=== PATIENT | female | born 1935 | race African-American/Black ===

== ENCOUNTER 2017-07-22 18:46 | Observation (INO) | payer MEDICARE, MEDICAID ==
[~2017-07-22] VITALS: Ht 162.6 cm; Wt 60.0 kg
[~2017-07-22 18:46] MED LIST: ARIC5TAB PO; CIPR250T2 PO; CITA20 PO; DUONI NEB; ENAL20TA PO; FERR325T86 PO; KCL10C PO; NORV5TAB PO; NOVORP2 SQ; PRAV20 PO; ROBISYP PO; WAL-10TA2 PO; ZEGE20CA PO
[2017-07-22 19:15] VITALS: BP 138/78; PULSE 89; RESP 16; TEMP 97.9; O2SAT 98
[2017-07-22] MEDS ORDERED: SODIUM CHLORIDE 0.9% FLUSH 10 ML FLUSH IVF PRN (20:00)
--- NOTE | 2017-07-22 20:03 | PD ---
HPI Chief Complaint: General Weakness Time Seen by Provider: 19:00 Travel History International Travel<30 days: No Contact w/Intl Traveler<30days: No Traveled to known affect area: No History of Present Illness HPI 82-year-old female presents to emergency department via [facility] from [facility] for weakness that started just prior to arrival. Evac stated that she had a fall however, patient denies this. According to Ev[facility] blood sugar was 49, D50 was administered, and blood glucose increased to 139. Pt denies feeling weak at this time. Denies fever, chills, LOC, headache, chest pain, shortness of breath , abdominal pain, back pain, dysuria. States that she has been eating well, really has no complaints. Patient has a history of diabetes for which she takes a 'pill'. Denies any other chronic conditions including COPD, asthma or heart problems. PFSH Past Medical History Anemia: Yes Arthritis: Yes Asthma: No Blood Disorders: No Anxiety: Yes Depression: No Heart Rhythm Problems: No Cancer: No Cardiovascular Problems: Yes High Cholesterol: Yes Chemotherapy: No Chest Pain: No Congestive Heart Failure: No COPD: No Cerebrovascular Accident: Yes Diabetes: Yes Patient Takes Glucophage: Yes Diminished Hearing: No Endocrine: Yes Gastrointestinal Disorders: Yes GERD: Yes Genitourinary: Yes (KIDNEY STONES) Headaches: Yes Hypertension: Yes Immune Disorder: No Kidney Stones: Yes Musculoskeletal: Yes Neurologic: No Psychiatric: Yes Reproductive: No Respiratory: No Migraines: No Radiation Therapy: No Sleep Apnea: No Thyroid Disease: No Ulcer: Yes Tetanus Vaccination: Unknown ?: Not : 4 Para: 4 Past Surgical History Abdominal Surgery: Yes (abominal sx to stop bleeding) Endocrine Surgery: Yes ("thyroid") Gynecologic Surgery: Yes Hysterectomy: Yes Other Surgery: Yes (TUMOR (ULCER) IN ABD SURGERY) Social History Alcohol Use: No Tobacco Use: No Substance Use: No Allergies-Medications (Allergen,Severity, Reaction): Coded Allergies: aspirin (Unverified Allergy, Severe, Heartburn, 07/22/17) SEVERE ABDOMINAL PAIN AND UPSET Reported Meds & Prescriptions Reported Meds & Active Scripts Active Reported Amlodipine (Amlodipine Besylate) 5 Mg Tab 5 Mg PO DAILY Citalopram (Citalopram Hydrobromide) 20 Mg Tab 20 Mg PO DAILY Donepezil 10 Mg Tab 10 Mg PO HS Enalapril (Enalapril Maleate) 20 Mg Tab 20 Mg PO DAILY Ferrous Sulfate 325 Mg (65 Mg Iron) Tablet 325 Mg PO BIDPC Allergy Relief (Loratadine) 10 Mg Tab 10 Mg PO DAILY Omeprazole 20 Mg Tab 20 Mg PO DAILY Pravastatin 40 Mg Tab 40 Mg PO DAILY Review of Systems Except as stated in HPI: all other systems reviewed are Neg Physical Exam Narrative GENERAL: Well-developed thin SKIN: Focused skin assessment warm/dry. No areas of ecchymosis or abrasions HEAD: Atraumatic. Normocephalic. EYES: Pupils equal and round. No scleral icterus. No injection or drainage. ENT: No nasal bleeding or discharge. Mucous membranes pink and moist. NECK: Trachea midline. No JVD. CARDIOVASCULAR: Regular rate and rhythm. No murmur appreciated. RESPIRATORY: No accessory muscle use. Clear to auscultation. Breath sounds equal bilaterally. GASTROINTESTINAL: Abdomen soft, non-tender, nondistended. Hepatic and splenic margins not palpable. MUSCULOSKELETAL: No obvious deformities. No clubbing. No cyanosis. No edema. Atraumatic. NEUROLOGICAL: Awake and alert. No obvious cranial nerve deficits. Motor grossly within normal limits. Normal speech. PSYCHIATRIC: Appropriate mood and affect; insight and judgment normal. Data Data Last Documented VS Vital Signs Date Time Temp Pulse Resp B/P (MAP) Pulse Ox O2 Delivery O2 Flow Rate FiO2 07/22/17 19:15 97.9 89 16 138/78 (98) 98 Orders Orders Electrocardiogram (07/22/17 19:50) Basic Metabolic Panel (Bmp) (07/22/17 19:50) Complete Blood Count With Diff (07/22/17 19:50) Ckmb (Isoenzyme) Profile (07/22/17 19:50) Troponin I (07/22/17 19:50) Urinalysis - C+S If Indicated (07/22/17 19:50) Chest, Single Ap (07/22/17 19:50) Ecg Monitoring (07/22/17 19:50) Iv Access Insert/Monitor (07/22/17 19:50) Oximetry (07/22/17 19:50) Sodium Chloride 0.9% Flush (Ns Flush) (07/22/17 20:00) Magnesium (Mg) (07/22/17 19:50) Bedside Glucose Q15M (07/22/17 20:23) Hypoglycemia 70 Mg/Dl Or < (07/22/17 20:23) Dextrose 50% In Choco (Vial) Inj (D50w (Vi (07/22/17 20:30) Orthostatic Vital Signs (07/22/17 20:51) Potassium Chloride (Kcl) (07/22/17 21:45) Lorazepam (Ativan) (07/22/17 22:00) Admit Order (Ed Use Only) (07/22/17 22:45) Amlodipine (Norvasc) (07/23/17 09:00) Citalopram (Celexa) (07/23/17 09:00) Donepezil (Aricept) (07/23/17 21:00) Enalapril (Vasotec) (07/23/17 09:00) Ferrous Sulfate (Ferrous Sulfate) (07/23/17 09:00) Loratadine (Claritin) (07/23/17 09:00) Pravastatin (Pravachol) (07/23/17 09:00) Pantoprazole (Protonix) (07/23/17 09:00) Labs Laboratory Tests Test 07/22/17 20:00 07/22/17 22:10 White Blood Count 6.7 TH/MM3 Red Blood Count 3.85 MIL/MM3 Hemoglobin 11.4 GM/DL Hematocrit 34.9 % Mean Corpuscular Volume 90.7 FL Mean Corpuscular Hemoglobin 29.6 PG Mean Corpuscular Hemoglobin Concent 32.6 % Red Cell Distribution Width 15.2 % Platelet Count 356 TH/MM3 Mean Platelet Volume 8.7 FL Neutrophils (%) (Auto) 77.9 % Lymphocytes (%) (Auto) 15.2 % Monocytes (%) (Auto) 5.8 % Eosinophils (%) (Auto) 0.5 % Basophils (%) (Auto) 0.6 % Neutrophils # (Auto) 5.2 TH/MM3 Lymphocytes # (Auto) 1.0 TH/MM3 Monocytes # (Auto) 0.4 TH/MM3 Eosinophils # (Auto) 0.0 TH/MM3 Basophils # (Auto) 0.0 TH/MM3 CBC Comment DIFF FINAL Differential Comment Blood Urea Nitrogen 11 MG/DL Creatinine 0.86 MG/DL Random Glucose 137 MG/DL Calcium Level 10.1 MG/DL Magnesium Level 0.8 MG/DL Sodium Level 138 MEQ/L Potassium Level 3.4 MEQ/L Chloride Level 105 MEQ/L Carbon Dioxide Level 24.9 MEQ/L Anion Gap 8 MEQ/L Estimat Glomerular Filtration Rate 77 ML/MIN Total Creatine Kinase 57 U/L Troponin I LESS THAN 0.02 NG/ML Urine Color LIGHT-YELLOW Urine Turbidity CLEAR Urine pH 5.5 Urine Specific [place] 1.005 Urine Protein NEG mg/dL Urine Glucose (UA) NEG mg/dL Urine Ketones NEG mg/dL Urine Occult Blood NEG Urine Nitrite NEG Urine Bilirubin NEG Urine Urobilinogen LESS THAN 2.0 MG/DL Urine Leukocyte Esterase NEG Urine RBC LESS THAN 1 /hpf Urine WBC 1 /hpf Microscopic Urinalysis Comment CULT NOT INDICATED MDM Medical Decision Making Medical Screen Exam Complete: Yes Emergency Medical Condition: Yes Differential Diagnosis Hypoglycemia versus metabolic disorder versus general deconditioning Narrative Course 82-year-old female presents to the emergency department via evac from [facility] for weakness is prior to arrival. Evac stated that she had a fall but pt denies this upon initial interview. She then states she fell between her bed and the wall. Family is present in the room upon interviewing and examining of this patient. Pt states that she had not eaten today. Chronic medical condition includes diabetes and dementia. Denies history of cardiac or pulmonary disease. Physical exams demonstrated a frail, thin female in no acute distress. No evidence of trauma or neurological deficits. Hypoglycemia protocol EKG demonstrated unifocal PVCs and atrial fibrillation without ST changes. Review from EKG in 2013 demonstrate that this is a change from sinus rhythm. Labs- urine clear. Mild hypokalemia- KCl administered. Chest x-ray without acute process. Nurse obtained more information from [facility] regarding the fall. Received a full medication reconciliation. Ativan administered secondary to patient's irritability and reluctance to remain in bed. Spoke to patient's family and they stated that the facility may not be reliable with care of pt. Because of patient's fluctuating blood sugars and change in EKG, we'll admit for observation. There was a delay in admission secondary to pending urinalysis. Admitted to Dr. Croft. Physician Communication Physician Communication Spoke to Dr. Mendez and he advised pt be admitted to Dr. Croft. Diagnosis Primary Impression: Hypoglycemia associated with diabetes Additional Impressions: Hypokalemia Dementia Qualified Codes: F03.91 - Unspecified dementia with behavioral disturbance Admitting Information Admitting Physician Requests: Admit Scripts Insulin Aspart Inj (Novolog Inj) 100 Unit/Ml Inj 1 UNITS SQ ACHS SLIDING SCALE for Blood Sugar Management for 30 Days, INJECTION Prov: Minnie Croft MD 07/24/17 Condition: Stable Aissatou Salazar Jul 22, 2017 20:03
[2017-07-22 20:28] LABS: AUTOMATED NEUTROPHIL # 5.2 TH/MM3 (1.8-7.7); BASOPHIL % 0.6 % (0.0-2.0); EOSINOPHIL % 0.5 % (0.0-4.0); HEMATOCRIT 34.9 % (35.0-46.0); HEMO FLAGS DIFF FINAL; LYMPH % 15.2 % (9.0-44.0); MEAN CELL VOLUME 90.7 FL (80.0-100.0); MEAN CORPUSCULAR HEMOGLOBIN 29.6 PG (27.0-34.0); MEAN CORPUSCULAR HGB CONC 32.6 % (32.0-36.0); MONO % 5.8 % (0.0-8.0); NEUT % 77.9 % (16.0-70.0); PLATELET COUNT 356 TH/MM3 (150-450); RED BLOOD COUNT 3.85 MIL/MM3 (4.00-5.30); RED CELL DISTRIBUTION WIDTH 15.2 % (11.6-17.2); WHITE BLOOD COUNT 6.7 TH/MM3 (4.0-11.0)
[2017-07-22] MEDS ORDERED: DEXTROSE 50% IN WATER 50 ML VIAL(D50) IV PUSH PRN ×2 (20:30→23:00)
--- NOTE | 2017-07-22 21:01 | RADRPT ---
EXAM DATE/TIME: 07/22/2017 19:59 [facility] COMPARISON: CHEST SINGLE AP, March 31, 2014, 16:06. INDICATIONS : Palpitations. MEDICAL HISTORY : Hypertension. Diabetes mellitus type II. Arthritis. Stroke. SURGICAL HISTORY : Hysterectomy. ENCOUNTER: Initial ACUITY: 1 day PAIN SCORE: 0/10 LOCATION: Bilateral chest FINDINGS: The lungs are clear without infiltrate, nodule, or mass. There is no appreciable pleural effusion fo r technique. Heart and mediastinum are unremarkable. CONCLUSION: No acute cardiopulmonary disease. Nehemias Orlando MD on July 22, 2017 at 20:58 Board Certified Radiologist. This report was verified electronically.
[2017-07-22] MEDS ORDERED: METF1000 PO (21:21)
[2017-07-22] MEDS ORDERED: CITA20TA4 PO (21:21)
[2017-07-22] MEDS ORDERED: PRAV40TA2 PO (21:21)
[2017-07-22] MEDS ORDERED: ALLE10TA PO (21:21)
[2017-07-22] MEDS ORDERED: AMLO5TAB2 PO (21:21)
[2017-07-22] MEDS ORDERED: ENAL20TA PO (21:21)
[2017-07-22] MEDS ORDERED: FERR325T8 PO (21:21)
[2017-07-22] MEDS ORDERED: OMEP20TA PO (21:21)
[2017-07-22] MEDS ORDERED: DONE10TA7 PO (21:21)
[2017-07-22] MEDS ORDERED: GLIP10TA6 PO (21:21)
[2017-07-22 21:30] LABS: ANION GAP 8 MEQ/L (5-15); BICARBONATE 24.9 MEQ/L (21.0-32.0); BLOOD UREA NITROGEN 11 MG/DL (7-18); CHLORIDE 105 MEQ/L (98-107); GLOMERULAR FILTRATION RATE 77 ML/MIN (>89); MAGNESIUM 0.8 MG/DL (1.5-2.5); POTASSIUM 3.4 MEQ/L (3.5-5.1); SODIUM (NA) 138 MEQ/L (136-145)
[2017-07-22 21:37] LABS: CREATINE KINASE 57 U/L (26-192)
[2017-07-22] MEDS ORDERED: POTASSIUM CHLORIDE 10 MEQ CONTROLLED RELEASE TAB PO ONE (21:45)
[2017-07-22] MEDS ORDERED: LORazepam 0.5 MG TAB PO ONE (22:00)
[2017-07-22 22:22] LABS: BLOOD, URINE NEG (NEG); COMMENT (UR) CULT NOT INDICATED; CULTURE IF INDICATED CULT NOT INDICATED; GLUCOSE,URINE NEG (NEG); KETONE, URINE NEG (NEG); NITRITE,URINE NEG (NEG); PH, URINE 5.5 (5.0-8.5); URINE COLOR LIGHT-YELLOW (YELLW/STRAW)
[2017-07-22] MEDS ORDERED: GLUCAGON 1 MG/ML VIAL OTHER PRN (23:00)
[2017-07-22] MEDS ORDERED: ONDANSETRON HCL 4 MG/2 ML VIAL IVP PRN (23:00)
[2017-07-22] MEDS ORDERED: LACTULOSE SYRUP 20 GM/30 ML CUP PO PRN (23:00)
[2017-07-22] MEDS ORDERED: MAGNESIUM HYDROXIDE SUSP 30 ML CUP PO PRN (23:00)
[2017-07-22] MEDS ORDERED: BISACODYL 10 MG SUPP RECTAL PRN (23:00)
[2017-07-22] MEDS ORDERED: SENNOSIDES 8.6 MG TAB PO PRN (23:00)
[2017-07-22] MEDS ORDERED: NALOXONE HCL 0.4 MG/ML AMP IV PUSH PRN (23:00)
[2017-07-22] MEDS ORDERED: SODIUM CHLORIDE 0.9% FLUSH 10 ML FLUSH IV FLUSH PRN (23:00)
[2017-07-22] MEDS: D5-1/2 NS + KCL 20 MEQ INJ 1,000 ML IV SCH (23:50)
[2017-07-22] MEDS: POTASSIUM CHLORIDE 20 MEQ CONTROLLED RELEASE TAB PO SCH (23:50)
[2017-07-22] MEDS: MAGNESIUM SULFATE 1 GM PREMIX 100 ML IV SCH (23:50)
[2017-07-23] VITALS (12 sets, daily range): BP systolic 125–158; BP diastolic 66–76; PULSE 72–100; RESP 16–18; TEMP 98–98.4; O2SAT 98–100
[2017-07-23] MEDS: MAGNESIUM SULFATE 1 GM PREMIX 100 ML IV SCH (02:35)
[2017-07-23 04:06] LABS: AUTOMATED NEUTROPHIL # 6.7 TH/MM3 (1.8-7.7); BASOPHIL # 0.1 TH/MM3 (0-0.2); BASOPHIL % 0.9 % (0.0-2.0); EOSINOPHIL # 0.1 TH/MM3 (0-0.4); EOSINOPHIL % 1.5 % (0.0-4.0); HEMATOCRIT 34.6 % (35.0-46.0); HEMO FLAGS DIFF FINAL; LYMPH % 24.8 % (9.0-44.0); LYMPHOCYTE # 2.5 TH/MM3 (1.0-4.8); MEAN CELL VOLUME 88.1 FL (80.0-100.0); MEAN CORPUSCULAR HEMOGLOBIN 28.9 PG (27.0-34.0); MEAN CORPUSCULAR HGB CONC 32.9 % (32.0-36.0); MONO % 6.5 % (0.0-8.0); NEUT % 66.3 % (16.0-70.0); PLATELET COUNT 406 TH/MM3 (150-450); RED BLOOD COUNT 3.93 MIL/MM3 (4.00-5.30); RED CELL DISTRIBUTION WIDTH 15.2 % (11.6-17.2); WHITE BLOOD COUNT 10.1 TH/MM3 (4.0-11.0)
[2017-07-23 04:27] LABS: BICARBONATE 28.2 MEQ/L (21.0-32.0); POTASSIUM 3.8 MEQ/L (3.5-5.1)
[2017-07-23 04:32] LABS: CREATINE KINASE 53 U/L (26-192)
[2017-07-23] MEDS: INSULIN ASPART SUPPLEMENTAL SCALE SQ SCH ×4 (08:00→21:00)
[2017-07-23] MEDS: SODIUM CHLORIDE 0.9% FLUSH 10 ML FLUSH IV FLUSH SCH ×2 (09:00→21:00)
--- NOTE | 2017-07-23 09:05 | MH ---
cc: JUAN ANTONIO CROFT DATE OF ADMISSION: 07/22/[address] Juan Antonio Croft PRIMARY CARE DOCTOR Dr. Onel Anthony REASON FOR ADMISSION Generalized weakness. HISTORY OF PRESENTING ILLNESS The patient is a pleasant 82-year-old, -[place] female who came to the ER because of generalized weakness on the left. The patient had a blood sugar of 49 done by EVAC and D50 was administered. There was a mention of fall but the patient denies any fall. As per the ER records the patient had a blood sugar of 49 and after D50 it went to 129 by EVAC and she was evaluated by the ER PA and recommended for admission because of the hypoglycemia with hypokalemia and dementia. The patient was admitted under observation. The patient was seen in the emergency room in G-Pod with RN. At present the patient is oriented to self and pleasant, offering no complaint, feeling good. PAST MEDICAL HISTORY 1. Dementia. 2. Diabetes. 3. CVA. 4. Depression. 5. Hypertension. 6. Hyperlipidemia. 7. Gastroesophageal reflux disease. 8. Peptic ulcer disease history. 9. History of falls in the past. 10. History of metabolic encephalopathy in the past. PAST SURGICAL HISTORY 1. History of hysterectomy, salpingo-oophorectomy. 2. Hemorrhoidectomy. 3. Stromal gastric tumor removed. 4. Hernia repair. 5. EGD. REVIEW OF SYSTEMS Review of systems for 10 systems was done, unremarkable as per the patient at present. The patient is demented. SOCIAL HISTORY The patient lives in a nursing facility Does not smoke, drink or do any drugs. ALLERGIES ALLERGIC TO ASPIRIN causing severe abdominal pain and upset. FAMILY HISTORY Unable to get from the patient. As per old record. Mother had dementia and she in her 80s. Father had a stroke. The patient had total of 9 brothers and 4 sisters. One brother is and as per family history in 2013 from complications of probable alcohol. PHYSICAL EXAMINATION GENERAL: The patient is alert and oriented to self, thin-built,, lying on bed without any apparent distress. VITAL SIGNS: Afebrile. Pulse of 80, respiratory rate 17, blood pressure 131/72, pulse ox of 99% on room air. HEENT: Head is atraumatic, normocephalic. Eyes - Negative conjunctival icterus. Mouth unremarkable. NECK: Supple. Negative increase in JVD. Negative thyromegaly. Central trachea. RESPIRATORY SYSTEM: Clear to auscultation. CV: S1 and S2 audible. Unable to hear any S3 gallop. No murmur. GI: Abdomen is soft, non-tender, no organomegaly. Positive bowel sounds. MUSCULOSKELETAL: Extremities with no cyanosis or pedal edema appreciated. ILLUSIONIST: Alert and oriented to herself. Normal facial features, moving all her extremities. There is decreased muscle mass. PSYCH: Appropriate mood and affect. SKIN: Warm and dry. INVESTIGATIONS WBC and platelet count within normal limits. Hemoglobin 11.4, hematocrit 34.6 which is stable. I was looking at the past record up to 2013. BNP within normal limits. Random glucose yesterday was 137, today it is 140 at 3:42 a.m. Troponin x 2 within normal limits. CK within normal limits. UA is within normal limits. X-RAYS X-ray was read which showed no acute cardiopulmonary disease. ASSESSMENT 1. Generalized weakness secondary to hypoglycemia. 2. Hypoglycemia with diabetes. 3. Dementia. 4. Chronic anemia. 5. History of CVA. 6. History of depression. 7. Hypertension. 8. History of hyperlipidemia. 9. GERD. 10. Peptic ulcer disease. PLAN 1. Admit to the floor under observation. 2. IV dextrose, 1/2 normal saline. 3. Monitor sugar. Accu-Cheks. 4. Continue home medication as indicated. Hold any antihyperglycemic medication. 5. Encourage p.o. feeding. 6. Increase activity. 7. Physical therapy. 8. GI prophylaxis. 9. DVT prophylaxis. 10. Explained to the patient. Discussed with RN. The patient had a hypoglycemic episode in 2013 as well. Likely the patient did not eat properly. Further recommendations to follow as the patient progresses. Juan Antonio Croft MD JP/LEVI /8:18 AM /8:34 AM
--- NOTE | 2017-07-23 10:01 | MB ---
cc: KATELYNN EPSTEIN M.D. DATE OF CONSULTATION: 07/23/2017 REASON FOR CONSULTATION Atrial fibrillation. HISTORY OF PRESENT ILLNESS The history is somewhat difficult to accurately elicit from the patient who is demented. She is an 82-year-old -Russian female with a history of hypertension, diabetes, dementia, asthma, remote history of peptic ulcer disease, who apparently was brought to the hospital with generalized weakness and hypoglycemia. The patient denies palpitations, chest pain, dizziness, syncope, near-syncope, pedal edema, paroxysmal nocturnal dyspnea. Occasionally she experiences mild lightheadedness. She reports no change in chronic mild dyspnea on exertion. PAST MEDICAL HISTORY 1. Remote history of peptic ulcer disease. 2. Hypertension. 3. Diabetes. 4. Asthma. 5. Dementia. 6. Hyperlipidemia. PAST SURGICAL HISTORY 1. Remote history of gastric stromal tumor removal. 2. CHARIS-BSO 1966. 3. Hemorrhoidectomy 1998. 4. Incisional hernia repair 07/02/2006. MEDICATIONS Her cardiac medications at home: 1. Amlodipine 5 mg q. day. 2. Enalapril 20 mg q. day. 3. Pravastatin 40 mg q. day. ALLERGIES ASPIRIN. FAMILY HISTORY Noncontributory. SOCIAL HISTORY The patient denies any history of alcohol or tobacco abuse. REVIEW OF SYSTEMS As in the history of present illness, otherwise negative or noncontributory. She also denies headache, abdominal pain, melena, dyspepsia, bright red blood per rectum, cough, wheezing, fevers. PHYSICAL EXAMINATION VITAL SIGNS: On physical examination her blood pressure is 127/66 with a pulse of 72, respirations 16. GENERAL: In general she is a well-developed, very thin -Russian female in no acute distress. HEENT/NECK: Jugular venous pressure is normal. Carotid pulses are 2+ bilaterally and without bruits. CHEST: Examination of the chest reveals clear lung gamez. CARDIAC: On cardiac examination she has a regular rhythm and rate without S3, S4, or murmur. ABDOMEN: On abdominal examination she has a soft, nontender abdomen. Bowel sounds are present. There is no definite hepatosplenomegaly. EXTREMITIES: Examination of the extremities reveals no clubbing, cyanosis or edema. LABORATORY Laboratory data includes WBC 10.1, hemoglobin 11.4, platelets 406, potassium 3.8, BUN 11, creatinine 0.76, negative cardiac enzymes. IMAGING Chest x-ray shows no acute disease. EKG EKG shows sinus rhythm with occasional premature ventricular complex and occasional premature atrial complex, left axis deviation. IMPRESSION Overall stable cardiac status in this 82-year-old -Russian female with a history of hypertension, diabetes, dementia, asthma, hyperlipidemia. I have been asked to see the patient for atrial fibrillation. Her EKG and cardiac monitoring recordings have been reviewed. I do not see any definitive evidence for atrial fibrillation. There is no evidence for acute coronary syndrome. Cardiac enzymes are negative. RECOMMENDATIONS No specific recommendations from a cardiac standpoint. Will see the patient as needed. MD CHARLES Ring/JC /9:38 AM /9:50 AM MTDD
[2017-07-23] MEDS: FERROUS SULFATE 325 MG (65 MG ELEMENTAL IRON) TAB PO SCH ×2 (10:30→18:40)
[2017-07-23] MEDS: LORATADINE 10 MG TAB PO SCH (10:30)
[2017-07-23] MEDS: ENALAPRIL MALEATE 10 MG TAB PO SCH (10:30)
[2017-07-23] MEDS: PANTOPRAZOLE SOD 20 MG DELAYED RELEASE TAB PO SCH (10:31)
[2017-07-23] MEDS: PRAVASTATIN SOD 40 MG TAB PO SCH (10:31)
[2017-07-23] MEDS: amLODIPine BESYLATE 5 MG TAB PO SCH (10:31)
[2017-07-23] MEDS: POTASSIUM CHLORIDE 20 MEQ CONTROLLED RELEASE TAB PO SCH ×2 (10:32→21:00)
[2017-07-23] MEDS: CITALOPRAM HYDROBROMIDE 20 MG TAB PO SCH (10:32)
[2017-07-23] MEDS: DOCUSATE SODIUM 50 MG/SENNA 8.6 MG TAB PO SCH ×2 (10:33→22:57)
[2017-07-23] MEDS: D5-1/2 NS + KCL 20 MEQ INJ 1,000 ML IV SCH (13:06)
--- NOTE | 2017-07-23 14:03 | EKG ---
Date Performed: 07/22/2017 Time Performed: 19:22:04 PTAGE: 82 years EKG: Sinus rhythm WITH FREQUENT VENTRICULAR PREMATURE COMPLEXES WITH OCCASIONAL SUPRAVENTRICULAR PREMATURE COMPLEXES M ARKED LEFT AXIS DEVIATION NONSPECIFIC T-WAVE ABNORMALITY ABNORMAL ECG PREVIOUS TRACING : 07/22/2017 19.21 DOCTOR: Brian Graham Interpretating Date/Time 07/23/2017 13:56:31
--- NOTE | 2017-07-23 17:07 | ECHRPT ---
Indication: atrial fib flutter CONCLUSIONS Normal left ventricular size. Wall thickness is measured at the upper limits of normal. The left ventricular systolic function is normal with an estimated ejection fraction in the range of 60-65%. There is trace tricuspid valve regurgitation. BP: 131 / 72 HR: 80 Rhythm: Atrial fibrillation MEASUREMENTS (Male / Female) Normal Values Technical Quality:Good 2D ECHO LV Diastolic Diameter PLAX 4.0 cm 4.2 - 5.9 / 3.9 - 5.3 cm LV Systolic Diameter PLAX 2.8 cm IVS Diastolic Thickness 1.0 cm 0.6 - 1.0 / 0.6 - 0.9 cm LVPW Diastolic Thickness 0.6 cm 0.6 - 1.0 / 0.6 - 0.9 cm LV Relative Wall Thickness 0.4 RV Internal Dim ED PLAX 2.0 cm LA Systolic Diameter LX 3.3 cm 3.0 - 4.0 / 2.7 - 3.8 cm M-MODE Aortic Root Diameter MM 2.8 cm AV Cusp Separation MM 2.0 cm DOPPLER Mitral E Point Velocity 48.4 cm/s Mitral A Point Velocity 82.4 cm/s Mitral E to A Ratio 0.6 TR Peak Velocity 229.0 cm/s TR Peak Gradient 21.0 mmHg FINDINGS LEFT VENTRICLE Normal left ventricular size. Wall thickness is measured at the upper limits of normal. The left ventricular systolic function is normal with an estimated ejection fraction in the range of 60-65%. RIGHT VENTRICLE Normal right ventricular size and systolic function. LEFT ATRIUM The left atrial size is normal. RIGHT ATRIUM The right atrial size is normal. ATRIAL SEPTUM Normal atrial septal thickness without atrial level shunting by limited color doppler interrogation. AORTA The aortic root and proximal ascending aorta are normal in size on limited imaging. MITRAL VALVE Structurally normal mitral valve. No mitral valve stenosis or regurgitation. AORTIC VALVE Trileaflet aortic valve. No aortic valve stenosis or regurgitation. TRICUSPID VALVE There is trace tricuspid valve regurgitation. PULMONARY VALVE The pulmonary valve is not well visualized. VESSELS The inferior vena cava is normal in size. PERICARDIUM There is a trivial pericardial effusion present. Lamberto Phan MD (Electronically Signed) Final Date:23 July 2017 17:06
[2017-07-23] MEDS ORDERED: DONEPEZIL HCL 5 MG TAB PO SCH (21:00)
[2017-07-24 03:42] VITALS: BP 153/75; PULSE 85; RESP 16; TEMP 97.8; O2SAT 100
[2017-07-24] MEDS: INSULIN ASPART SUPPLEMENTAL SCALE SQ SCH (08:00)
--- NOTE | 2017-07-24 08:39 | HHI.PR ---
Subjective Remarks pt is dementend alert not in any distress offering no complaint feeling better no pain no sob no n/v no liao or dizziness no cough ROS limited bc of dementia as per rn no issues or events yesterday and las night Objective Objective Results - Vital Signs Date Time Temp Pulse Resp B/P (MAP) Pulse Ox O2 Delivery O2 Flow Rate FiO2 07/24/17 03:42 97.8 85 16 153/75 (101) 100 07/23/17 23:17 98.0 77 17 139/66 (90) 100 07/23/17 20:37 88 07/23/17 19:57 98.0 100 18 139/68 (91) 99 07/23/17 16:00 98.2 81 18 140/69 (92) 99 07/23/17 11:44 98.1 80 16 130/72 (91) 99 07/23/17 08:40 72 I/O 07/23/17 07/23/17 07/23/17 07/24/17 07/24/17 07/24/17 07:00 15:00 23:00 07:00 15:00 23:00 Intake Total 450 ml 1300 ml 200 ml Balance 450 ml 1300 ml 200 ml Intake Oral 250 ml 300 ml 200 ml IV Total 200 ml 1000 ml # Voids 2 Result Diagram: 07/23/1734107/23/17341 Physical Exam Physical Exam GENERAL: The patient is alert and oriented to self, thin-built,, lying on bed without any apparent distress. VITAL SIGNS: reviewed HEENT: Head is atraumatic, normocephalic. Eyes - Negative conjunctival icterus. Mouth unremarkable. NECK: Supple. Negative increase in JVD. Negative thyromegaly. Central trachea. RESPIRATORY SYSTEM: Clear to auscultation. CV: S1 and S2 audible. Unable to hear any S3 gallop. No murmur. GI: Abdomen is soft, non-tender, no organomegaly. Positive bowel sounds. MUSCULOSKELETAL: Extremities with no cyanosis or pedal edema appreciated. DIRECTOR OF ASSESSING: Alert and oriented to herself. Normal facial features, moving all her extremities. There is decreased muscle mass. PSYCH: Appropriate mood and affect. SKIN: Warm and dry. A/P Assessment and Plan 1. Generalized weakness secondary to hypoglycemia. 2. Hypoglycemia with diabetes. 3. Dementia. 4. Chronic anemia. 5. History of CVA. 6. History of depression. 7. Hypertension. 8. History of hyperlipidemia. 9. GERD. 10. Peptic ulcer disease. PLAN 1. seen in observation unit. 2. off of IV dextrosefrom yesterday . 3. stable Accu-Cheks. 4. Continue home medication as indicated. Hold any antihyperglycemic medication. will send her with sliding scale coverage 5. Encourage p.o. feeding. 6. Increase activity. 7. Physical therapy. 8. GI prophylaxis. 9. DVT prophylaxis. 10. Explained to the patient. Discussed with RN. mely back to her place today to follow pcp in day to two Minnie Croft MD Jul 24, 2017 08:39
[2017-07-24] MEDS ORDERED: NOVOLOGSS SQ (08:40)
[2017-07-24] MEDS: FERROUS SULFATE 325 MG (65 MG ELEMENTAL IRON) TAB PO SCH (09:00)
[2017-07-24] MEDS: PANTOPRAZOLE SOD 20 MG DELAYED RELEASE TAB PO SCH (09:00)
[2017-07-24] MEDS: ENALAPRIL MALEATE 10 MG TAB PO SCH (09:00)
[2017-07-24] MEDS: amLODIPine BESYLATE 5 MG TAB PO SCH (09:00)
[2017-07-24] MEDS: LORATADINE 10 MG TAB PO SCH (09:00)
[2017-07-24] MEDS: SODIUM CHLORIDE 0.9% FLUSH 10 ML FLUSH IV FLUSH SCH (09:00)
[2017-07-24] MEDS: DOCUSATE SODIUM 50 MG/SENNA 8.6 MG TAB PO SCH (09:00)
[2017-07-24] MEDS: CITALOPRAM HYDROBROMIDE 20 MG TAB PO SCH (09:00)
[2017-07-24] MEDS: POTASSIUM CHLORIDE 20 MEQ CONTROLLED RELEASE TAB PO SCH (09:00)
[2017-07-24] MEDS: PRAVASTATIN SOD 40 MG TAB PO SCH (09:00)
== END 2017-07-24 11:58 | disposition home or self-care (01) ==
LOC: NEPE 18:46 → NEDA 22:47 → NEPGCP 07-23 00:18
PROVIDERS: ADMIT Specialist; ATTEND Specialist
DX: R53.1 Weakness (principal); E11.649 Type 2 diabetes mellitus with hypoglycemia without coma; D64.9 Anemia, unspecified; R42 Dizziness and giddiness; E87.6 Hypokalemia; I48.91 Unspecified atrial fibrillation; I49.3 Ventricular premature depolarization; F03.91 Unspecified dementia, unspecified severity, with behavioral disturbance; J45.909 Unspecified asthma, uncomplicated; I10 Essential (primary) hypertension; E78.5 Hyperlipidemia, unspecified; E78.00 Pure hypercholesterolemia, unspecified; K21.9 Gastro-esophageal reflux disease without esophagitis; F32.9 Major depressive disorder, single episode, unspecified; F41.9 Anxiety disorder, unspecified; M19.90 Unspecified osteoarthritis, unspecified site; Z87.11 Personal history of peptic ulcer disease; Z79.899 Other long term (current) drug therapy; Z86.73 Personal history of transient ischemic attack (TIA), and cerebral infarction without residual deficits
CPT/HCPCS: 71010; 80048; 81001; 82550; 82948; 83735; 84484; 85025; 93005; 93306; 96365; 96366; 96372; 96376; 97163; 99285; G0378; G8987; G8988; J1815; J3475; J3480